=== PATIENT | female | born 1960 | race Caucasian/White ===

== ENCOUNTER 2018-03-01 17:26 | Emergency (ER) | payer BC ==
--- NOTE | 2018-03-01 18:53 | UC ---
Respiratory Complaint HPI - HPI Summary HPI Summary: 57 year old female her for congestion, cough and rhinorheaa for one week with 3 days of left sided facial pain. Reports cough productive. Reports "rattling" in her right lung. No SOB or CP. - History of Current Complaint Chief Complaint: UCRespiratory Stated Complaint: SINUSES, UPPER RESPIRATORY Time Seen by Provider: 03/01/18 18:27 Hx Obtained From: Patient Onset/Duration: Gradual Onset Severity Initially: Mild Pain Intensity: 1 Character: Cough: Productive Alleviating Factors: Spontaneous Resolution Associated Signs And Symptoms: Positive: Nasal Congestion, Sinus Discomfort. Negative: Wheezing, Hemoptysis, Dizziness, Calf Pain, Hoarseness - Allergies/Home Medications Allergies/Adverse Reactions: Allergies Allergy/AdvReac Type Severity Reaction Status Date / Time Sulfa (Sulfonamide Allergy Rash Verified 03/01/18 18:34 Antibiotics) Home Medications: Home Medications Albuterol HFA INHALER* [Ventolin HFA Inhaler*] 2 puff INH Q4H PRN 03/01/18 [ History Confirmed 03/01/18] Benzonatate CAP* [Tessalon 100 MG CAP*] 100 mg PO TID PRN 03/01/18 [History Confirmed 03/01/18] Montelukast Sodium TAB* [Singulair TAB*] 5 mg PO DAILY 03/01/18 [History Confirmed 03/01/18] PMH/Surg Hx/FS Hx/Imm Hx Previously Healthy: Yes - Surgical History Surgical History: None - Family History Known Family History: Positive: None - Social History Alcohol Use: Weekly Substance Use Type: None Smoking Status (MU): Never Smoked Tobacco When Did the Patient Quit Smoking/Using Tobacco: 2003 - Immunization History Most Recent Influenza Vaccination: [id number] Review of Systems Constitutional: Chills ENT: Nasal Discharge, Sinus Congestion, Sinus Pain/Tenderness Respiratory: Cough All Other Systems Reviewed And Are Negative: Yes Physical Exam Triage Information Reviewed: Yes Vital Signs: Initial Vital Signs Temp 37.3 C 03/01/18 18:25 Pulse 109 03/01/18 18:25 Resp 16 03/01/18 18:25 BP 128/83 03/01/18 18:25 Pulse Ox 96 03/01/18 18:25 Vital Signs Reviewed: Yes ENT Exam: Normal ENT: Positive: Nasal congestion, Nasal drainage, Sinus tenderness - left sinus tenderness Neck: Positive: Supple, Nontender, No Lymphadenopathy Respiratory: Positive: Other: - right lower lobe with mild crackles Cardiovascular: Positive: No Murmur, Pulses Normal Abdominal Exam: Normal Musculoskeletal Exam: Normal UC Diagnostic Evaluation - Laboratory O2 Sat by Pulse Oximetry: 96 Respiratory Course/Dx - Course Course Of Treatment: 57 year old female with sinsuitis and concern on exam also for pneumonia. Discussed with patient about XR vs. just treat (as she will be treated with abd for sinusitis) and she prefets just the abx. Patient also used to be reported history of PCN allergy but recently had allergy test and she was told she is not allergic to PCN and she wants to try Augmentin. - Differential Dx/Diagnosis Differential Diagnosis/HQI/PQRI: Asthma, Bronchitis, Laryngitis, Lower Resp Infection, Sinusitis Provider Diagnoses: Sinusitis and Pneumonia. patient non-toxic, well appearing Discharge - Sign-Out/Discharge Documenting (check all that apply): Discharge/Admit/Transfer - Discharge Plan Condition: Good Disposition: HOME Prescriptions: Amoxicillin/Clavulanate TAB* [Augmentin TAB 875*] 875 mg PO BID 10 Days #20 tab Patient Education Materials: Sinusitis (ED), Pneumonia (ED) Forms: *Work Release Referrals: Jessy Montesinos MD [Primary Care Provider] - - Billing Disposition and Condition Condition: GOOD Disposition: HOME
[2018-03-01 19:15] VITALS: BP 127/74
== END 2018-03-01 19:19 | disposition home or self-care (01) ==
LOC: UCCORT 17:26
DX: J32.9 Chronic sinusitis, unspecified (principal); J18.9 Pneumonia, unspecified organism; Z88.2 Allergy status to sulfonamides
CPT/HCPCS: 99212; G0463

== ENCOUNTER 2018-12-12 15:10 | Emergency (ER) | payer BC ==
[2018-12-12 15:20] VITALS: BP 138/82
--- NOTE | 2018-12-12 15:52 | UC ---
Ear Complaint HPI - HPI Summary HPI Summary: 58-year-old female comes in with a chief complaint of right ear pain for 3 weeks. He's had ringing in the ear. Over the last 1 week she's been developing sinus pressure and some rhinorrhea primarily in the right side. No recent fevers no sore throat. This reminds the patient what happens when she gets sinus infection. No shortness of breath no cough no chest congestion. - History of Current Complaint Chief Complaint: UCGeneralIllness Stated Complaint: SINUS COMPLAINT Time Seen by Provider: 12/12/18 15:44 Pain Intensity: 2 - Allergies/Home Medications Allergies/Adverse Reactions: Allergies Allergy/AdvReac Type Severity Reaction Status Date / Time Penicillins Allergy Rash Verified 12/12/18 15:20 Sulfa (Sulfonamide Allergy Rash Verified 12/12/18 15:20 Antibiotics) PMH/Surg Hx/FS Hx/Imm Hx Previously Healthy: Yes GI/ History: Gastroesophageal Reflux - Surgical History Surgical History: None - Family History Known Family History: Positive: None - Social History Alcohol Use: Weekly Substance Use Type: None Smoking Status (MU): Never Smoked Tobacco When Did the Patient Quit Smoking/Using Tobacco: 2003 - Immunization History Most Recent Influenza Vaccination: [id number] Review of Systems All Other Systems Reviewed And Are Negative: Yes Constitutional: Positive: Negative Skin: Positive: Negative Eyes: Positive: Negative ENT: Positive: Ear Ache, Nasal Discharge, Sinus Congestion, Sinus Pain/ Tenderness Respiratory: Positive: Negative Cardiovascular: Positive: Negative Gastrointestinal: Positive: Negative Motor: Positive: Negative Neurovascular: Positive: Negative Musculoskeletal: Positive: Negative Neurological: Positive: Negative Psychological: Positive: Negative Is Patient Immunocompromised?: No Physical Exam Triage Information Reviewed: Yes Appearance: Well-Appearing, No Pain Distress, Well-Nourished Vital Signs: Initial Vital Signs Temp 98.1 F 12/12/18 15:17 Pulse 98 12/12/18 15:17 Resp 16 12/12/18 15:17 BP 138/82 12/12/18 15:17 Pulse Ox 98 12/12/18 15:17 Vital Signs Reviewed: Yes Eye Exam: Normal Eyes: Positive: Conjunctiva Clear ENT: Positive: Pharynx normal, Nasal congestion, Nasal drainage, TMs normal - LEFT, Other - RT CERUMEN IMPACTION Neck exam: Normal Neck: Positive: Supple Respiratory: Positive: Lungs clear, Normal breath sounds, No respiratory distress Cardiovascular: Positive: RRR Musculoskeletal Exam: Normal Musculoskeletal: Positive: Strength Intact, ROM Intact Neurological Exam: Normal Neurological: Positive: Alert, Muscle Tone Normal Psychological Exam: Normal Psychological: Positive: Normal Response To Family, Age Appropriate Behavior Skin Exam: Normal Ear Complaint Course/Dx - Course Course Of Treatment: Patient has right cerumen impaction. We discussed treatment for right cerumen impaction. At this time with the ear pain in the sinusitis symptoms not sure if she has an ear infection behind that wax. Therefore at this time of any treating with antibiotics for the sinusitis and the patient can use [id number] ear preparation for the right ear to loosen up that wax and perhaps help it fall out. Let the patient know that after treatment with the ears feeling better she should get that reevaluated to determine if irrigation will be helpful with the cerumen impaction. - Differential Dx/Diagnosis Provider Diagnosis: Impacted cerumen, right ear, Right ear pain, Sinusitis Discharge - Sign-Out/Discharge Documenting (check all that apply): Patient Departure All imaging exams completed and their final reports reviewed: No Studies - Discharge Plan Condition: Stable Disposition: HOME Prescriptions: Azithromyxin SHANTAL (NF) [Z-Shantal (Zithromax) 250 mg tabs #6] 2 tab PO .TODAY, THEN 1 DAILY #6 tab Patient Education Materials: Sinusitis (ED), Cerumen Impaction (ED), Earache ( ED) Referrals: Chrystal Hwang MD [Primary Care Provider] - Additional Instructions: USE SOME OVER THE COUNTER EAR WAX DROPS DIRECTED. FOLLOW UP WITH YOUR DOCTOR OR RETURN HERE IF NOT COMPLETELY IMPROVED. GET RECHECKED FOR ANY WORSENING OF YOUR CONDITION OR QUESTIONS OR CONCERNS. - Billing Disposition and Condition Condition: STABLE Disposition: Home
== END 2018-12-12 15:58 | disposition home or self-care (01) ==
LOC: UCCORT 15:10
DX: H61.21 Impacted cerumen, right ear (principal); H92.01 Otalgia, right ear; J32.9 Chronic sinusitis, unspecified; Z88.0 Allergy status to penicillin; Z88.2 Allergy status to sulfonamides
CPT/HCPCS: 99212; G0463

== ENCOUNTER 2019-01-17 10:55 | Emergency (ER) | payer BC ==
[2019-01-17 11:33] VITALS: BP 149/93
--- NOTE | 2019-01-17 11:53 | UC ---
Respiratory Complaint HPI - HPI Summary HPI Summary: [age]-year-old female with a one-week history of sinus pressure and pain she is also had some right otalgia. She denies any fever or chills. She has had postnasal drip and cough - History of Current Complaint Chief Complaint: UCGeneralIllness Stated Complaint: SINUS CONGESTION Time Seen by Provider: 01/17/19 11:34 Hx Obtained From: Patient Onset/Duration: Gradual Onset, Lasting Days Severity Initially: Mild Severity Currently: Moderate Pain Intensity: 3 Pain Scale Used: 0-10 Numeric Character: Cough: Nonproductive Aggravating Factors: Nothing Alleviating Factors: Nothing Associated Signs And Symptoms: Positive: Negative, Nasal Congestion, Sinus Discomfort - Allergies/Home Medications Allergies/Adverse Reactions: Allergies Allergy/AdvReac Type Severity Reaction Status Date / Time Penicillins Allergy Rash Verified 01/17/19 11:30 Sulfa (Sulfonamide Allergy Rash Verified 01/17/19 11:30 Antibiotics) Home Medications: Home Medications Cetirizine HCl/Pseudoephedrine [Zyrtec-D Tablet] 1 each PO BID 01/17/19 [ History Confirmed 01/17/19] Dexlansoprazole [Dexilant] 60 mg PO DAILY 01/17/19 [History Confirmed 01/17/19] Fluticasone NASAL SPRAY 50MCG* [Flonase NASAL SPRAY 50MCG*] 2 spray LEFT NARE DAILY 01/17/19 [History Confirmed 01/17/19] Meloxicam(NF) [Mobic(NF)] 7.5 mg PO DAILY 01/17/19 [History Confirmed 01/17/19] PMH/Surg Hx/FS Hx/Imm Hx Previously Healthy: Yes Cardiovascular History: Hypertension Respiratory History: COPD, Pneumonia - Surgical History Surgical History: None - Family History Known Family History: Positive: Hypertension - Social History Alcohol Use: Weekly Substance Use Type: None Smoking Status (MU): Never Smoked Tobacco When Did the Patient Quit Smoking/Using Tobacco: 2004 - Immunization History Most Recent Influenza Vaccination: [id number] Review of Systems All Other Systems Reviewed And Are Negative: Yes Constitutional: Positive: Fatigue Skin: Positive: Negative Eyes: Positive: Negative ENT: Positive: Ear Ache, Nasal Discharge, Sinus Congestion Respiratory: Positive: Cough Cardiovascular: Positive: Negative Gastrointestinal: Positive: Negative Genitourinary: Positive: Negative Motor: Positive: Negative Neurovascular: Positive: Negative Musculoskeletal: Positive: Negative Neurological: Positive: Negative Psychological: Positive: Negative Physical Exam Triage Information Reviewed: Yes Appearance: Well-Appearing, No Pain Distress, Well-Nourished Vital Signs: Initial Vital Signs Temp 97.8 F 01/17/19 11:29 Pulse 98 01/17/19 11:29 Resp 16 01/17/19 11:29 BP 149/93 01/17/19 11:29 Pulse Ox 97 01/17/19 11:29 Vital Signs Reviewed: Yes Eyes: Positive: Conjunctiva Clear ENT: Positive: Hearing grossly normal, Nasal congestion, Sinus tenderness, Uvula midline. Negative: Nasal drainage, TMs normal - left ok, right cerumen, Tonsillar swelling, Tonsillar exudate, Trismus, Muffled voice, Dental tenderness Neck: Positive: Supple Respiratory: Positive: Lungs clear, Normal breath sounds, No respiratory distress, No accessory muscle use Cardiovascular: Positive: RRR, No Murmur Bowel Sounds: Positive: Present Musculoskeletal: Positive: ROM Intact, No Edema Neurological: Positive: Alert Psychological Exam: Normal Skin Exam: Normal Re-Evaluation - Re-Evaluation First Eval Re-Evaluation Time: 11:57 Change: Improved - post ear irrigation right TM visualized and normal Respiratory Course/Dx - Differential Dx/Diagnosis Provider Diagnosis: Sinusitis, acute, Impacted cerumen, right ear Discharge - Sign-Out/Discharge Documenting (check all that apply): Patient Departure All imaging exams completed and their final reports reviewed: No Studies - Discharge Plan Condition: Stable Disposition: HOME Prescriptions: DOXYcycline CAP(*) [DOXYcycline 100MG CAP(*)] 100 mg PO BID #20 cap Patient Education Materials: Sinusitis (ED) Referrals: Chrystal Hwang MD [Primary Care Provider] - 1 Week (if not better) - Billing Disposition and Condition Condition: STABLE Disposition: Home
== END 2019-01-17 12:04 | disposition home or self-care (01) ==
LOC: UCCORT 10:55
DX: J01.90 Acute sinusitis, unspecified (principal); H61.21 Impacted cerumen, right ear; I10 Essential (primary) hypertension; J44.9 Chronic obstructive pulmonary disease, unspecified; Z88.0 Allergy status to penicillin; Z88.2 Allergy status to sulfonamides
CPT/HCPCS: 99213; G0463